=== PATIENT | male | born 1980 | race Two or more races ===

== ENCOUNTER 2018-03-16 08:05 | Emergency (ER) | payer MEDICAID, OTHER ==
[~2018-03-16] VITALS: Ht 172.7 cm; Wt 72.6 kg
[2018-03-16] VITALS (7 sets, daily range): BP systolic 106–136; BP diastolic 54–91
[~2018-03-16 08:05] MED LIST: BACLOFEN10 MG ORAL; IBUPROFEN600 MG ORAL; NKM
[2018-03-16] MEDS ORDERED: Haloperidol 5mg/ml Inj IM ONE (08:15)
[2018-03-16] MEDS ORDERED: LORazepam Inj 2mg/ml 1ml IM ONE (08:15)
--- NOTE | 2018-03-16 08:27 | Emergency Room Report ---
History of Present Illness General Chief Complaint: Behavioral Complaint Source: Patient, EMS (Amelie Pretty DO) Present Illness HPI This patient is brought in by EMS and in custody with [place] [employer]. Apparently he was breaking and entering. [employer] state use acting bizarrely and so presents here for bizarre behavior. The patient himself is tangential and agitated. He is unable to give any significant history at this time. (Amelie Pretty DO) Allergies: Coded Allergies: No Known Allergies (Unverified , 10/06/12) UNABLE TO ASSESS (Unverified , 03/16/18) Patient History Past Medical History: see triage record, unable to obtain Past Surgical History: unable to obtain Pertinent Family History: unable to obtain Social History: Reports: drug use Reviewed Nursing Documentation: PMH: Agreed; PSxH: Agreed (Amelie Pretty DO) Nursing Documentation-PMH Past Medical History: No Stated History (Amelie Pretty DO) Review of Systems All Other Systems: limited (Amelie Pretty DO) Physical Exam Vital Signs Date Time Temp Pulse Resp B/P (MAP) Pulse Ox O2 Delivery O2 Flow Rate FiO2 03/16/18 08:02 16 General Appearance: no apparent distress, alert, GCS 15, non-toxic, other - Hancuffed to gurney wrists and ankles Head: normocephalic, atraumatic Eyes: bilateral eye normal inspection ENT: hearing grossly normal, normal pharynx, no angioedema, normal voice Neck: full range of motion, supple/symm/no masses Respiratory: chest non-tender, lungs clear, normal breath sounds, no respiratory distress, no retraction, no accessory muscle use, speaking full sentences Cardiovascular #1: no edema, tachycardia Gastrointestinal: normal bowel sounds, non tender, soft, non-distended, no guarding, no rebound Rectal: deferred Musculoskeletal: back normal, normal range of motion, non-tender Neurologic: alert, oriented x3, responsive, motor strength/tone normal, sensory intact, speech normal Psychiatric: other - Agitated, tangiential, hallucinating Skin: normal color, no rash, warm/dry, well hydrated (Amelie Pretty DO) Medical Decision Making Diagnostic Impression: Primary Impression: Amphetamine and psychostimulant abuse ER Course This patient is brought in by EMS and [place] [employer] for aggressive and combative is behavior. He also was breaking and entering. On arrival he was combative and intoxicated. He was a danger to others including the medical staff. He was given IM Haldol, IM Ativan and IM Benadryl. I reassessed this patient later around 2:30 PM and the patient is sleepy but arousable and calm. He is still sleepy so I did not feel that I could completely clear him psychiatrically by having Dr. Cortez see him. Anticipate this patient will likely clear and be able to be discharged once the medications have worn off. I suspect the patient's behavior is related to amphetamine use. The patient is on a 5150. I will contact Dr. Cortez. The patient is turned over to Dr. Avilez for final disposition. Laboratory Tests Test 03/16/18 09:05 White Blood Count 5.9 K/UL (4.8-10.8) Red Blood Count 4.77 M/UL (4.70-6.10) Hemoglobin 15.2 G/DL (14.2-18.0) Hematocrit 42.9 % (42.0-52.0) Mean Corpuscular Volume 90 FL (80-99) Mean Corpuscular Hemoglobin 31.9 PG (27.0-31.0) H Mean Corpuscular Hemoglobin Concent 35.5 G/DL (32.0-36.0) Red Cell Distribution Width 10.8 % (11.6-14.8) L Platelet Count 242 K/UL (150-450) Mean Platelet Volume 6.4 FL (6.5-10.1) L Neutrophils (%) (Auto) 62.1 % (45.0-75.0) Lymphocytes (%) (Auto) 27.0 % (20.0-45.0) Monocytes (%) (Auto) 7.7 % (1.0-10.0) Eosinophils (%) (Auto) 1.9 % (0.0-3.0) Basophils (%) (Auto) 1.4 % (0.0-2.0) Urine Color Yellow Urine Appearance Clear Urine pH 5 (4.5-8.0) Urine Specific Wilber 1.025 (1.005-1.035) Urine Protein 2+ (NEGATIVE) H Urine Glucose (UA) Negative (NEGATIVE) Urine Ketones Negative (NEGATIVE) Urine Blood 4+ (NEGATIVE) H Urine Nitrite Negative (NEGATIVE) Urine Bilirubin Negative (NEGATIVE) Urine Urobilinogen 1 MG/DL (0.0-1.0) H Urine Leukocyte Esterase Negative (NEGATIVE) Urine RBC 10-15 /HPF (0 - 0) H Urine WBC 0 /HPF (0 - 0) Urine Squamous Epithelial Cells Occasional /LPF Urine Bacteria Few /HPF (NONE) Urine Mucus Occasional /LPF Sodium Level 139 MMOL/L (136-145) Potassium Level 3.5 MMOL/L (3.5-5.1) Chloride Level 104 MMOL/L (98-107) Carbon Dioxide Level 26 MMOL/L (21-32) Anion Gap 10 mmol/L (5-15) Blood Urea Nitrogen 22 mg/dL (7-18) H Creatinine 1.2 MG/DL (0.55-1.30) Estimate Glomerular Filtration Rate > 60 mL/min (>60) Glucose Level 89 MG/DL (74-106) Calcium Level 8.7 MG/DL (8.5-10.1) Total Bilirubin 0.3 MG/DL (0.2-1.0) Aspartate Amino Transferase (AST) 33 U/L (15-37) Alanine Aminotransferase (ALT) 42 U/L (12-78) Alkaline Phosphatase 117 U/L (46-116) H Total Protein 7.4 G/DL (6.4-8.2) Albumin 4.1 G/DL (3.4-5.0) Globulin 3.3 g/dL Albumin/Globulin Ratio 1.2 (1.0-2.7) Thyroid Stimulating Hormone (TSH) 0.831 uiU/mL (0.358-3.740) Salicylates Level 3.1 ug/mL (2.8-20) Urine Opiates Screen Negative (NEGATIVE) Acetaminophen Level < 2 MCG/ML (10-30) L Urine Barbiturates Screen Negative (NEGATIVE) Phencyclidine (PCP) Screen Negative (NEGATIVE) Urine Amphetamines Screen Positive (NEGATIVE) H Urine Benzodiazepines Screen Negative (NEGATIVE) Urine Cocaine Screen Negative (NEGATIVE) Urine Marijuana (THC) Screen Negative (NEGATIVE) Serum Alcohol < 3 mg/dL (Amelie Pretty DO) ER Course Patient is medically cleared for psychiatric placement. Patient was noted to be sedated after medications. The patient is currently pending psychiatric evaluation due to 5150 hold. (Vincent Avilez MD) EKG Diagnostic Results Rate: normal Rhythm: NSR ST Segments: no acute changes (Amelie Pretty DO) Rhythm Strip Diag. Results EP Interpretation: yes Rate: 80's Rhythm: NSR, no PVC's, no ectopy (Amelie Pretty DO) Last Vital Signs Date Time Temp Pulse Resp B/P (MAP) Pulse Ox O2 Delivery O2 Flow Rate FiO2 03/16/18 08:02 16 (Amelie Pretty DO) Status: improved (Vincent Avilez MD) Disposition: XFER TO PSYCH HOSP/UNIT Patient Instructions: Self-Destructive Behavior Amelie Pretty DO Mar 16, 2018 08:27 Vincent Avilez MD Mar 16, 2018 18:33
[2018-03-16] MEDS ORDERED: DiphenhydrAMINE 50mg/ml Inj ONE (08:35)
[2018-03-16] MEDS ORDERED: DiphenhydrAMINE 50mg/ml Inj IM ONE (08:45)
[2018-03-16 09:33] LABS: BASOPHILS % (AUTO) 1.4 % (0.0-2.0); EOSINOPHILS % (AUTO) 1.9 % (0.0-3.0); HEMATOCRIT 42.9 % (42.0-52.0); HEMOGLOBIN 15.2 G/DL (14.2-18.0); MEAN CORPUSCULAR VOLUME 90 FL (80-99); MONOCYTES % (AUTO) 7.7 % (1.0-10.0); NEUTROPHILS % (AUTO) 62.1 % (45.0-75.0); PLATELET COUNT 242 K/UL (150-450); RED BLOOD COUNT 4.77 M/UL (4.70-6.10); RED CELL DISTRIBUTION WIDTH 10.8 % (11.6-14.8); WHITE BLOOD COUNT 5.9 K/UL (4.8-10.8)
[2018-03-16 09:41] LABS: ANION GAP 10 mmol/L (5-15); BLOOD UREA NITROGEN 22 mg/dL (7-18); CALCIUM 8.7 MG/DL (8.5-10.1); CARBON DIOXIDE 26 MMOL/L (21-32); CHLORIDE 104 MMOL/L (98-107); CREATININE 1.2 MG/DL (0.55-1.30); POTASSIUM 3.5 MMOL/L (3.5-5.1); SODIUM 139 MMOL/L (136-145)
[2018-03-16 09:50] LABS: APPEARANCE,URINE CLEAR; BILIRUBIN, URINE NEGATIVE (NEGATIVE); GLUCOSE, URINE (UA) NEGATIVE (NEGATIVE); KETONES,URINE NEGATIVE (NEGATIVE); LEUKOCYTE ESTERASE ,URINE NEGATIVE (NEGATIVE); NITRITE,URINE NEGATIVE (NEGATIVE); PH,URINE 5 (4.5-8.0); PROTEIN,URINE 2+ (NEGATIVE); UROBILINOGEN,URINE 1 MG/DL (0.0-1.0)
[2018-03-16 09:52] LABS: COLOR,URINE YELLOW
[2018-03-16 09:54] LABS: ALANINE AMINOTRANSFERASE 42 U/L (12-78); ALBUMIN 4.1 G/DL (3.4-5.0); ALBUMIN/GLOBULIN RATIO 1.2 (1.0-2.7); ALKALINE PHOSPHATASE 117 U/L (46-116); ASPARTATE AMINO TRANSFERASE 33 U/L (15-37); BILIRUBIN,TOTAL 0.3 MG/DL (0.2-1.0)
--- NOTE | 2018-03-17 15:27 | Cardiology Report ---
APPROVED REPORT EKG Measurement Heart [id number] Normal sinus rhythm Possible Left atrial enlargement Incomplete right bundle branch block Borderline ECG
== END 2018-03-16 22:55 ==
LOC: EDBD 08:05 → EMR 08:25
DX: F15.10 Other stimulant abuse, uncomplicated (principal); F19.10 Other psychoactive substance abuse, uncomplicated
CPT/HCPCS: 36415; 80053; 80307; 80329; 81003; 84443; 85025; 93005; 96372; 99285; J1200; J1630